=== PATIENT | female | born 1985 ===

== ENCOUNTER 2022-02-05 18:34 | Emergency (ER) | payer OTHER ==
[2022-02-05 18:41] VITALS: BP 97/63; PULSE 67; TEMP 97; BMI 30.4
[2022-02-05] MEDS ORDERED: ACETAMINOPHEN 325 MG TABLET (FP) PO ONE (20:56)
[2022-02-05] MEDS ORDERED: LIDOCAINE 5% TOPICAL PATCH TP ONE (20:56)
[2022-02-05] MEDS ORDERED: ACETAMINOPHEN 500 MG TABLET (FP) ONE (21:06)
[2022-02-05] MEDS ORDERED: LIDOCAINE 5% TOPICAL PATCH ONE (21:06)
[2022-02-05 21:49] LABS: BASO % 0.9 % (0-2.0); EOS % 1.1 % (0-4.5); HEMOGLOBIN 11.7 GM/dL (10.7-15.3); LYMPH % 26.6 % (8-40); MCHC 33.3 g/dl (32.0-36.0); MEAN CELL VOLUME 86.8 fl (80-96); MEAN PLT VOLUME 7.7 fl (7.5-11.1); MONO % 7.5 % (3.8-10.2); NEUT % 63.9 % (42.8-82.8); PLATELET COUNT 120 10^3/uL (134-434); RBC 4.03 M/mm3 (3.60-5.2); RDW 14.9 % (11.6-15.6); WHITE BLOOD COUNT 6.5 K/mm3 (4.0-10.0)
[2022-02-05] MEDS ORDERED: LIDOCAINE PATCH REMOVAL MC SCH (22:00)
[2022-02-05 22:07] LABS: EPI CELLS 3 /uL (0-25.1); HYALINE CASTS 0 /uL (0-3.1); PH,URINE 7.5 (5.0-8.0); URINE APPEARANCE CLEAR; URINE BACTERIA 134 /uL (0-1359); URINE BILIRUBIN NEGATIVE (NEGATIVE); URINE COLOR YELLOW; URINE GLUCOSE (UA) NEGATIVE (NEGATIVE); URINE KETONE NEGATIVE (NEGATIVE); URINE LEUK ESTERASE TRACE (NEGATIVE); URINE NITRITE NEGATIVE (NEGATIVE); URINE PROTEIN NEGATIVE (NEGATIVE); URINE RBC 2 /uL (0-23.9); URINE UROBILINOGEN 0.2 mg/dL (0.2-1.0); URINE WBC 6 /uL (0-25.8)
[2022-02-05 22:14] LABS: ALBUMIN 3.8 g/dl (3.4-5.0); CALCIUM 8.9 mg/dL (8.5-10.1)
[2022-02-05 22:17] LABS: CREATININE 0.5 mg/dL (0.55-1.3)
[2022-02-05 22:19] LABS: BILIRUBIN,TOTAL 0.4 mg/dL (0.2-1); TOT PROT 7.5 g/dl (6.4-8.2)
== END 2022-02-05 23:49 | disposition home or self-care (01) ==
LOC: JER 18:34
DX: M54.50 Low back pain, unspecified (principal)
CPT/HCPCS: 36415; 80053; 81003; 84443; 84484; 84703; 85025; 87077; 87086; 93005; 93010; 99284-25